=== PATIENT | male | born 1950 | race Caucasian/White ===

== ENCOUNTER 2016-08-28 07:02 | Day surgery (SDC) | payer MEDICARE, OTHER ==
[2016-08-24 09:00] VITALS: BMI 26.9
[~2016-08-28 07:02] MED LIST: LACTATED RINGERS 1,000 ML IV SCH; LIDOCAINE 1% 20 ML VIAL (10MG/ML) FOR IV START INTRADERMA PRN
[2016-08-28 07:20] VITALS: TEMP 97.1
[2016-08-28] MEDS ORDERED: PROPOFOL 10 MG/ML 20 ML VIAL IV ONE (07:45)
[2016-08-28] MEDS ORDERED: LIDOCAINE 1% INJ 10MG/ML (20 ML MDV) ONE (07:45)
--- NOTE | 2016-08-28 07:50 | P.GSHP ---
History of Present Illness H&P Date: 08/28/16 Chief Complaint: Screening colonoscopy, history of polyps This is a 66-year-old male referred from Dr. Yandel Ricci. Patient presents today for screening colonoscopy. He has a history of polyps. His last colonoscopy was 13 years ago. 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, Past Anesthesia/Blood Transfusion Reactions: No Reported Reaction Smoking Status: Current some day smoker Past Alcohol Use History: Rare Additional Past Alcohol Use History / Comment(s): STARTED SMOKING AT AGE 21 , TRYING TO QUIT PRESENTLY,SMOKED 1-1 1/2PPD PRIOR Past Drug Use History: None Reported - Past Family History Mother Family Medical History: Deep Vein Thrombosis (DVT) Medications and Allergies Home Medications Medication Instructions Recorded Confirmed Type Aspirin 81 mg PO DAILY 08/24/16 08/28/16 History HYDROcodone/APAP 10-325MG [[place] 1 tab PO Q6H PRN 08/24/16 08/28/16 History 10-325] Tamsulosin [Flomax] 0.4 mg PO DAILY 08/24/16 08/28/16 History Allergies Allergy/AdvReac Type Severity Reaction Status Date / Time No Known Allergies Allergy Verified 08/24/16 08:34 Surgical - Exam Vital Signs Temp Pulse Resp BP Pulse Ox 97.1 F L 69 14 137/91 99 08/28/16 07:18 08/28/16 07:18 08/28/16 07:18 08/28/16 07:18 08/28/16 07:18 - General well developed, no distress - Eyes PERRL - ENT normal pinna - Neck no masses - Respiratory normal expansion - Cardiovascular Rhythm: regular - Abdomen Abdomen: soft, non tender Assessment and Plan Plan: 66-year-old male with history of colonic polyps.. We'll perform screening colonoscopy
--- NOTE | 2016-08-28 08:04 | P.OP ---
Date of Procedure: 08/28/16 Preoperative Diagnosis: Screening colonoscopy Postoperative Diagnosis: Normal colon Procedure(s) Performed: Colonoscopy Anesthesia: MAC Surgeon: August France Pathology: none sent Condition: stable Disposition: PACU Description of Procedure: PROCEDURE: The patient was placed on the endoscopy table in the lateral position. Digital rectal examination was performed which revealed no abnormalities. The prostate was symmetrical without nodules. Flexible colonoscope was then placed in the patient's anus and passed throughout the entire colon. The ileocecal valve was visualized. The cecum, ascending, transverse, descending and sigmoid colon were normal. The rectum was normal as well. There were no masses, polyps or diverticula noted in the entire colon. SUMMARY OF FINDINGS: Normal colonoscopy.
[2016-08-28 08:10] VITALS: RESP 16
[2016-08-28 08:39] VITALS: BP 121/78; PULSE 71
== END 2016-08-28 08:41 | disposition home or self-care (01) ==
LOC: ORWHC2ENDO 07:02
PROVIDERS: ATTEND Surgery
DX: Z12.11 Encounter for screening for malignant neoplasm of colon (principal); Z86.010 Personal history of colon polyps; M19.90 Unspecified osteoarthritis, unspecified site; F17.200 Nicotine dependence, unspecified, uncomplicated; Z79.82 Long term (current) use of aspirin; Z79.891 Long term (current) use of opiate analgesic; Z79.899 Other long term (current) drug therapy
CPT/HCPCS: J2001; J2704; G0105; 45378; 99153